=== PATIENT | female | born 1985 | race Caucasian/White ===

== ENCOUNTER 2020-11-06 14:56 | Inpatient (IN) | payer MEDICAID ==
[~2020-11-06] VITALS: Ht 154.9 cm; Wt 67.0 kg
[~2020-11-06 14:56] MED LIST: IRONTAB35 OR
[2020-11-06] MEDS ORDERED: SODIUM CHLORIDE 0.9% 1,000 ML IVB ONE (15:45)
[2020-11-06] MEDS: PROMETHAZINE HCL 25 MG/ML 1ML IV PRN (16:04)
[2020-11-06 16:18] LABS: Basophils # (auto) 0.1 10 ^3/uL (0-0.2); Eosinophils # (auto) 0.4 10 ^3/uL (0-0.8); Eosinophils % (auto) 7.2 % (0.0-7.0); Hematocrit 42.8 % (36.0-46.0); Hemoglobin 14.3 g/dL (12.2-16.2); Lymphocytes # (auto) 0.9 10 ^3/uL (0.4-5.4); Lymphocytes % (auto) 15.8 % (10.0-50.0); Mean Corpuscular Hemoglobin 28.5 pg (28.0-32.0); Mean Corpuscular Hgb Conc. 33.4 g/dL (32.0-36.0); Mean Corpuscular Volume 85.3 fL (80.0-100.0); Monocytes # (auto) 0.4 10 ^3/uL (0-1.3); Monocytes % (auto) 6.2 % (0.0-12.0); Neutrophils # (auto) 4.1 10 ^3/uL (1.6-8.6); Neutrophils % (auto) 69.8 % (37.0-80.0); Nucleated Red Blood Cells % 0.1 %; Platelet Count (auto) 259 10^3/uL (140-450); Red Blood Cells 5.02 10^6/uL (4.0-5.20); Red Cell Distribution Width 14.3 % (11.8-14.3); White Blood Cell 5.9 10^3/uL (4.4-10.8)
[2020-11-06 16:22] LABS: Urine Bacteria FEW /hpf (None Seen); Urine Blood 1+ /uL (Negative); Urine Mucus FEW (None Seen); Urine WBC 9 /hpf (0 - 5)
[2020-11-06 16:36] LABS: Albumin 4.1 g/dL (3.4-5.0); Calcium 9.2 mg/dL (8.5-10.1); Magnesium 2.1 mg/dL (1.6-2.6); Potassium 3.6 mmol/L (3.5-5.1)
[2020-11-06 16:39] LABS: BUN/Creatinine Ratio 12.9; Bilirubin, Total 5.5 mg/dL (0.2-1.0); Total Protein 8.3 g/dL (6.4-8.2)
[2020-11-06] MEDS ORDERED: cefTRIAXone 1GM/50ML D5W 50 ML IV ONE (17:30)
[2020-11-06] MEDS ORDERED: MORPHINE SULF INJ 2 MG/ML SYRINGE 1ML IV ONE (17:30)
[2020-11-06] MEDS ORDERED: NITROGLYCERIN 0.4 MG SL TAB SL PRN (19:30)
[2020-11-06] MEDS ORDERED: ACETAMINOPHEN 325 MG TAB PO PRN (19:30)
[2020-11-06] MEDS ORDERED: MORPHINE SULF INJ 2 MG/ML SYRINGE 1ML IV PRN (19:30)
[2020-11-06] MEDS: PANTOPRAZOLE 40 MG/10 ML VIAL INJ IV SCH (19:59)
[2020-11-06] MEDS: metroNIDAZOLE 500MG/100ML 100 ML IV SCH (20:00)
[2020-11-06 21:56] VITALS: BP 150/83
[2020-11-06] MEDS: MORPHINE SULF INJ 2 MG/ML SYRINGE 1ML IV PRN (22:38)
[2020-11-07] MEDS: metroNIDAZOLE 500MG/100ML 100 ML IV SCH ×3 (01:39→18:48)
[2020-11-07] MEDS: MORPHINE SULF INJ 2 MG/ML SYRINGE 1ML IV PRN ×4 (04:54→20:43)
[2020-11-07 05:00] VITALS: BP 130/75
[2020-11-07 05:32] LABS: Potassium 3.5 mmol/L (3.5-5.1)
[2020-11-07 05:39] LABS: Albumin 3.3 g/dL (3.4-5.0); BUN/Creatinine Ratio 14.3; Calcium 8.5 mg/dL (8.5-10.1); Total Protein 6.7 g/dL (6.4-8.2)
[2020-11-07 08:00] VITALS: BP 138/79
[2020-11-07] MEDS: PANTOPRAZOLE 40 MG/10 ML VIAL INJ IV SCH (08:41)
[2020-11-07] MEDS: cefTRIAXone 1GM/50ML D5W 50 ML IV SCH (08:41)
[2020-11-07 09:00] VITALS: BP 137/79
[2020-11-07 12:33] VITALS: BP 147/91
[2020-11-07] MEDS: ONDANSETRON HCL 4 MG/2 ML VIAL IV PRN ×2 (15:56→20:43)
[2020-11-07 17:00] VITALS: BP 166/93
[2020-11-07 21:36] VITALS: BP 134/79
[2020-11-08] MEDS: metroNIDAZOLE 500MG/100ML 100 ML IV SCH ×3 (01:37→17:40)
[2020-11-08] MEDS: ONDANSETRON HCL 4 MG/2 ML VIAL IV PRN (04:00)
[2020-11-08 05:00] VITALS: BP 126/84
[2020-11-08 06:25] LABS: Albumin 3.3 g/dL (3.4-5.0); Calcium 8.7 mg/dL (8.5-10.1); Potassium 3.5 mmol/L (3.5-5.1)
[2020-11-08 06:31] LABS: BUN/Creatinine Ratio 9.3; Bilirubin, Total 3.8 mg/dL (0.2-1.0)
[2020-11-08] MEDS: cefTRIAXone 1GM/50ML D5W 50 ML IV SCH (08:23)
[2020-11-08] MEDS: MORPHINE SULF INJ 2 MG/ML SYRINGE 1ML IV PRN ×3 (08:24→20:18)
[2020-11-08 09:00] VITALS: BP 131/95
[2020-11-08] MEDS: PANTOPRAZOLE 40 MG/10 ML VIAL INJ IV SCH (10:15)
[2020-11-08 12:53] VITALS: BP 140/81
[2020-11-08 16:55] VITALS: BP 116/81
[2020-11-08] MEDS: PROMETHAZINE HCL 25 MG/ML 1ML IV PRN (20:18)
[2020-11-08 22:00] VITALS: BP 129/86
[2020-11-09] MEDS: MORPHINE SULF INJ 2 MG/ML SYRINGE 1ML IV PRN ×4 (01:18→21:08)
[2020-11-09] MEDS: PROMETHAZINE HCL 25 MG/ML 1ML IV PRN (01:18)
[2020-11-09] MEDS: metroNIDAZOLE 500MG/100ML 100 ML IV SCH ×3 (01:19→17:25)
[2020-11-09 05:00] VITALS: BP 120/89
[2020-11-09 05:14] LABS: Albumin 3.2 g/dL (3.4-5.0); Calcium 8.9 mg/dL (8.5-10.1); Potassium 3.5 mmol/L (3.5-5.1)
[2020-11-09 05:18] LABS: BUN/Creatinine Ratio 9.5; Bilirubin, Total 3.5 mg/dL (0.2-1.0)
[2020-11-09] MEDS: cefTRIAXone 1GM/50ML D5W 50 ML IV SCH (08:41)
[2020-11-09 09:00] VITALS: BP 119/74
[2020-11-09] MEDS: ONDANSETRON HCL 4 MG/2 ML VIAL IV PRN ×3 (09:07→21:09)
[2020-11-09] MEDS: PANTOPRAZOLE 40 MG/10 ML VIAL INJ IV SCH (09:51)
[2020-11-09 13:16] VITALS: BP 114/81
[2020-11-09 16:44] VITALS: BP 118/97
[2020-11-09 22:00] VITALS: BP 131/80
[2020-11-10] MEDS: metroNIDAZOLE 500MG/100ML 100 ML IV SCH ×3 (02:23→17:26)
[2020-11-10 04:26] VITALS: BP 136/87
[2020-11-10] MEDS: MORPHINE SULF INJ 2 MG/ML SYRINGE 1ML IV PRN ×3 (04:45→17:14)
[2020-11-10] MEDS: ONDANSETRON HCL 4 MG/2 ML VIAL IV PRN ×3 (04:45→17:14)
[2020-11-10 08:30] VITALS: BP 134/90
[2020-11-10] MEDS: cefTRIAXone 1GM/50ML D5W 50 ML IV SCH (09:18)
[2020-11-10] MEDS: PANTOPRAZOLE 40 MG/10 ML VIAL INJ IV SCH (09:18)
[2020-11-10 11:03] LABS: Calcium 8.6 mg/dL (8.5-10.1); Potassium 3.6 mmol/L (3.5-5.1)
[2020-11-10 11:09] LABS: BUN/Creatinine Ratio 10.4; Bilirubin, Total 3.6 mg/dL (0.2-1.0); Total Protein 6.9 g/dL (6.4-8.2)
[2020-11-10 12:30] VITALS: BP 132/87
[2020-11-10] MEDS: ENOXAPARIN SOD 40 MG/0.4 ML SYRINGE SC SCH (14:12)
[2020-11-10 16:30] VITALS: BP 128/75
[2020-11-10 22:00] VITALS: BP 128/71
[2020-11-11] MEDS: ONDANSETRON HCL 4 MG/2 ML VIAL IV PRN ×3 (00:45→17:16)
[2020-11-11] MEDS: MORPHINE SULF INJ 2 MG/ML SYRINGE 1ML IV PRN ×3 (00:45→17:17)
[2020-11-11] MEDS: metroNIDAZOLE 500MG/100ML 100 ML IV SCH ×3 (02:11→17:33)
[2020-11-11 05:52] VITALS: BP 124/79
[2020-11-11 09:00] VITALS: BP 119/76
[2020-11-11] MEDS: PANTOPRAZOLE 40 MG/10 ML VIAL INJ IV SCH (09:25)
[2020-11-11] MEDS: cefTRIAXone 1GM/50ML D5W 50 ML IV SCH (09:26)
[2020-11-11] MEDS: ENOXAPARIN SOD 40 MG/0.4 ML SYRINGE SC SCH (09:27)
[2020-11-11 13:00] VITALS: BP 114/68
[2020-11-11 15:31] LABS: Albumin 3.1 g/dL (3.4-5.0); Calcium 8.8 mg/dL (8.5-10.1); Potassium 3.4 mmol/L (3.5-5.1)
[2020-11-11 15:36] LABS: BUN/Creatinine Ratio 9.4; Bilirubin, Total 3.5 mg/dL (0.2-1.0)
[2020-11-11] MEDS ORDERED: POTASSIUM CHL 20 Meq TABLET PO ONE (16:30)
[2020-11-11 17:00] VITALS: BP 143/93
[2020-11-11 22:00] VITALS: BP 124/83
[2020-11-12] MEDS: metroNIDAZOLE 500MG/100ML 100 ML IV SCH ×3 (02:14→17:37)
[2020-11-12] MEDS: MORPHINE SULF INJ 2 MG/ML SYRINGE 1ML IV PRN ×4 (02:15→18:07)
[2020-11-12] MEDS: ONDANSETRON HCL 4 MG/2 ML VIAL IV PRN ×4 (02:15→18:07)
[2020-11-12 05:00] VITALS: BP 115/75
[2020-11-12 05:36] LABS: Basophils # (auto) 0.1 10 ^3/uL (0-0.2); Basophils % (auto) 1.4 % (0.0-2.0); Eosinophils # (auto) 0.4 10 ^3/uL (0-0.8); Eosinophils % (auto) 6.6 % (0.0-7.0); Hemoglobin 12.9 g/dL (12.2-16.2); Lymphocytes # (auto) 1.7 10 ^3/uL (0.4-5.4); Lymphocytes % (auto) 29.2 % (10.0-50.0); Mean Corpuscular Hemoglobin 28.8 pg (28.0-32.0); Mean Corpuscular Volume 84.9 fL (80.0-100.0); Monocytes # (auto) 0.4 10 ^3/uL (0-1.3); Monocytes % (auto) 7.6 % (0.0-12.0); Neutrophils # (auto) 3.2 10 ^3/uL (1.6-8.6); Neutrophils % (auto) 55.2 % (37.0-80.0); Nucleated Red Blood Cells % 0.1 %; Platelet Count (auto) 225 10^3/uL (140-450); Red Blood Cells 4.48 10^6/uL (4.0-5.20); Red Cell Distribution Width 14.5 % (11.8-14.3); White Blood Cell 5.7 10^3/uL (4.4-10.8)
[2020-11-12 05:55] LABS: BUN/Creatinine Ratio 8.3; Calcium 8.8 mg/dL (8.5-10.1); Potassium 3.9 mmol/L (3.5-5.1)
[2020-11-12 06:04] LABS: INR 1.07 (0.9-1.15); Partial Thromboplastin Time 30.4 sec (23.0-31.2)
[2020-11-12 06:14] LABS: Albumin 3.1 g/dL (3.4-5.0); Bilirubin, Direct 2.6 mg/dL (0-0.2); Bilirubin, Total 3.5 mg/dL (0.2-1.0); Total Protein 6.7 g/dL (6.4-8.2)
[2020-11-12] MEDS: cefTRIAXone 1GM/50ML D5W 50 ML IV SCH (08:34)
[2020-11-12 08:48] VITALS: BP 115/68
[2020-11-12] MEDS: ENOXAPARIN SOD 40 MG/0.4 ML SYRINGE SC SCH (10:06)
[2020-11-12] MEDS: PANTOPRAZOLE 40 MG/10 ML VIAL INJ IV SCH (10:06)
[2020-11-12 12:47] VITALS: BP 116/77
[2020-11-12 16:33] VITALS: BP 128/90
[2020-11-12 22:00] VITALS: BP 122/74
[2020-11-13] MEDS: metroNIDAZOLE 500MG/100ML 100 ML IV SCH ×3 (02:14→17:32)
[2020-11-13] MEDS: MORPHINE SULF INJ 2 MG/ML SYRINGE 1ML IV PRN ×5 (02:15→20:01)
[2020-11-13] MEDS: ONDANSETRON HCL 4 MG/2 ML VIAL IV PRN ×5 (02:15→20:02)
[2020-11-13 05:03] VITALS: BP 114/78
[2020-11-13 05:51] LABS: Basophils # (auto) 0 10 ^3/uL (0-0.2); Basophils % (auto) 0.8 % (0.0-2.0); Eosinophils # (auto) 0.5 10 ^3/uL (0-0.8); Eosinophils % (auto) 8.1 % (0.0-7.0); Hematocrit 39.8 % (36.0-46.0); Hemoglobin 13.1 g/dL (12.2-16.2); Lymphocytes # (auto) 1.7 10 ^3/uL (0.4-5.4); Lymphocytes % (auto) 30.8 % (10.0-50.0); Mean Corpuscular Hemoglobin 28.1 pg (28.0-32.0); Mean Corpuscular Hgb Conc. 32.9 g/dL (32.0-36.0); Mean Corpuscular Volume 85.3 fL (80.0-100.0); Monocytes # (auto) 0.5 10 ^3/uL (0-1.3); Monocytes % (auto) 8.6 % (0.0-12.0); Neutrophils # (auto) 2.9 10 ^3/uL (1.6-8.6); Neutrophils % (auto) 51.7 % (37.0-80.0); Nucleated Red Blood Cells % 0.1 %; Platelet Count (auto) 240 10^3/uL (140-450); Red Blood Cells 4.67 10^6/uL (4.0-5.20); Red Cell Distribution Width 14.9 % (11.8-14.3); White Blood Cell 5.6 10^3/uL (4.4-10.8)
[2020-11-13 06:12] LABS: Calcium 8.5 mg/dL (8.5-10.1); Potassium 3.8 mmol/L (3.5-5.1)
[2020-11-13 06:17] LABS: BUN/Creatinine Ratio 7.7; Bilirubin, Total 3.2 mg/dL (0.2-1.0); Total Protein 6.8 g/dL (6.4-8.2)
[2020-11-13 08:42] VITALS: BP 121/89
[2020-11-13] MEDS: cefTRIAXone 1GM/50ML D5W 50 ML IV SCH (08:59)
[2020-11-13] MEDS: ENOXAPARIN SOD 40 MG/0.4 ML SYRINGE SC SCH (09:38)
[2020-11-13] MEDS: PANTOPRAZOLE 40 MG/10 ML VIAL INJ IV SCH (09:38)
[2020-11-13 12:41] VITALS: BP 118/81
[2020-11-13 16:20] VITALS: BP 118/92
[2020-11-13] MEDS ORDERED: diphenhdrAMINE HCL 12.5 MG/5 ML UD PO ONE (20:30)
[2020-11-13 22:14] VITALS: BP 131/82
[2020-11-14] MEDS: metroNIDAZOLE 500MG/100ML 100 ML IV SCH ×3 (01:06→17:56)
[2020-11-14] MEDS: ONDANSETRON HCL 4 MG/2 ML VIAL IV PRN ×4 (01:07→17:15)
[2020-11-14] MEDS: MORPHINE SULF INJ 2 MG/ML SYRINGE 1ML IV PRN ×5 (01:07→23:57)
[2020-11-14 05:05] VITALS: BP 122/82
[2020-11-14] MEDS: cefTRIAXone 1GM/50ML D5W 50 ML IV SCH (08:49)
[2020-11-14 09:18] VITALS: BP 121/80
[2020-11-14] MEDS: PANTOPRAZOLE 40 MG/10 ML VIAL INJ IV SCH (10:03)
[2020-11-14] MEDS: ENOXAPARIN SOD 40 MG/0.4 ML SYRINGE SC SCH (10:04)
[2020-11-14 12:50] VITALS: BP 135/79
[2020-11-14 16:55] VITALS: BP 123/80
[2020-11-14] MEDS: PROMETHAZINE HCL 25 MG/ML 1ML IV PRN ×2 (17:55→23:58)
[2020-11-14 22:00] VITALS: BP 110/72
[2020-11-15] VITALS (7 sets, daily range): BP systolic 114–131; BP diastolic 65–89
[2020-11-15] MEDS: metroNIDAZOLE 500MG/100ML 100 ML IV SCH ×3 (01:25→17:24)
[2020-11-15] MEDS: PROMETHAZINE HCL 25 MG/ML 1ML IV PRN (06:14)
[2020-11-15] MEDS: MORPHINE SULF INJ 2 MG/ML SYRINGE 1ML IV PRN ×2 (06:14→16:16)
[2020-11-15 08:16] LABS: Albumin 3.1 g/dL (3.4-5.0); BUN/Creatinine Ratio 3.4; Calcium 8.9 mg/dL (8.5-10.1); Potassium 3.6 mmol/L (3.5-5.1)
[2020-11-15 08:19] LABS: Bilirubin, Total 4.1 mg/dL (0.2-1.0); Total Protein 6.7 g/dL (6.4-8.2)
[2020-11-15] MEDS ORDERED: CLINIMIX PER PHARMACY 0 ML IV SCH ×2 (09:15)
[2020-11-15 09:25] LABS: Phosphorus 4.3 mg/dL (2.5-4.90)
[2020-11-15 09:30] LABS: Pre Albumin 13.2 mg/dL (20.0-40.0)
[2020-11-15] MEDS: ENOXAPARIN SOD 40 MG/0.4 ML SYRINGE SC SCH (09:34)
[2020-11-15] MEDS: cefTRIAXone 1GM/50ML D5W 50 ML IV SCH (09:35)
[2020-11-15] MEDS: PANTOPRAZOLE 40 MG/10 ML VIAL INJ IV SCH (09:35)
[2020-11-15] MEDS ORDERED: AMINO ACID INFUSION IN D10W 1,000 ML IV NR ×2 (10:30→20:00)
[2020-11-15] MEDS: ONDANSETRON HCL 4 MG/2 ML VIAL IV PRN (16:16)
[2020-11-15] MEDS ORDERED: InsuLIN REG 1unit/0.01ml Soln (100units/ml) SC SCH (18:00)
[2020-11-15] MEDS ORDERED: DEXTROSE (50%) 50ML SYRG IV SCH (18:00)
[2020-11-15] MEDS ORDERED: ACCU-CHEK COMFORT CURVE STRIP VI SCH (18:00)
== END 2020-11-15 23:15 | disposition short-term general hospital (02) ==
LOC: ER 14:58 → TELE 19:25 → TELE-CENTR 21:56
PROVIDERS: ADMIT Internal Medicine; ATTEND Internal Medicine
DX: K80.00 Calculus of gallbladder with acute cholecystitis without obstruction (principal); N39.0 Urinary tract infection, site not specified; R79.89 Other specified abnormal findings of blood chemistry; Z83.3 Family history of diabetes mellitus; Z20.822 Contact with and (suspected) exposure to COVID-19
CPT/HCPCS: 36415; 74181; 76705; 80048; 80053; 80076; 81001; 81025; 82040; 82962; 83690; 83735; 84100; 84478; 84702; 85025; 85610; 85730; 87426; 96361; 96365; 96366; 96375; C9113; G0378; J0696; J2405; J3490